=== PATIENT | male | born 1965 | race African-American/Black ===

== ENCOUNTER 2019-08-29 05:31 | Day surgery (SDC) ==
[2019-07-02 15:57] LABS: HEMATOCRIT 49.5 % (42.0-52.0); HEMOGLOBIN 15.7 g/dL (14.0-18.0); MCH 22.2 PG (27-31); MCHC 31.7 g/dL (33-37); MPV 9.8 FL (7.4-10.4); RBC 7.07 XMIL (4.7-6.1); RDW 18.7 % (11.5-14.5); WBC 4.77 X1000 (4.8-10.8)
[2019-07-02 16:08] LABS: INR 0.95; PROTIME 12.8 Seconds (11.0-16.0)
[2019-07-02 16:39] LABS: AGAP 14; BUN 17 mg/dL (8-22); CALCIUM 10.1 mg/dL (8.8-10.2); CHLORIDE 102 mmol/L (98-107); COSMO 285; CREATININE 1.4 mg/dL (0.7-1.2); ESTIMATED GFR > 60; GLUCOSE 110 mg/dL (70-104); POTASSIUM 4.8 mmol/L (3.5-5.1); SODIUM 142 mmol/L (136-145); TCO2 26 mmol/L (25-35)
--- NOTE | 2019-08-28 20:12 | HISTORY AND PHYSICAL ---
HISTORY OF PRESENT ILLNESS: A 53-year-old male with clinical stage T1c prostate adenocarcinoma. He presented with a rising PSA of 4.74 with 4K score being 31%. He underwent prostate biopsy on 06/04/2019. Unfortunately biopsy revealed Junior 3 + 3 prostate adenocarcinoma and 3 cores with left base, left mid and left base involved. He had 5 - 40 percent of cores involvement. His prostatic volume was 19 mL. There was no evidence of significant median lobe. He was counseled on intervention and wants to proceed with robotic prostatectomy with nerve sparing urethral suspension. PAST MEDICAL HISTORY: Prostate cancer, elevated PSA. PAST SURGICAL HISTORY: Wrist surgery. HOME MEDICATIONS: Travatan eye drops. ALLERGIES: No known drug allergies none. FAMILY HISTORY: Positive for coronary artery disease. SOCIAL HISTORY: Denies tobacco, alcohol or illicit drug use. PHYSICAL EXAMINATION: GENERAL: No acute distress. HEENT: Normocephalic, atraumatic. PULMONARY: Bilateral breath sounds. ABDOMEN: Soft, nontender, nondistended. : Normal external male genitalia. Meatus is patent. ASSESSMENT AND PLAN: A 53-year-old male with Radha 6 prostate adenocarcinoma who desires robotic-assisted laparoscopic radical prostatectomy with nerve sparing and laparoscopic ureteral suspension. Discussed with Mr. Barrera risks of the procedure including but not limited to bleeding, infection, injury to adjacent structures, risk of long-term urinary incontinence and risk of long-term erectile dysfunction. We also discussed the need for Zavala catheter postoperatively. He voiced understanding and wants to proceed. PLAN: Robotic-assisted laparoscopic prostatectomy with laparoscopic ureteral suspension. cc: Minesh Marrero MD [facility]
[2019-08-29] MEDS ORDERED: LR 1,000 ML ONE ×2 (05:50→06:40)
[2019-08-29] MEDS ORDERED: REGLAN ONE (05:50)
[2019-08-29] MEDS ORDERED: PEPCID ONE (05:50)
[2019-08-29] MEDS ORDERED: KEFZOL 1 GM/D5W 1 GM/50 ML IVPB ONE (05:50)
[2019-08-29] MEDS ORDERED: XYLOCAINE-MPF 2% ONE (06:11)
[2019-08-29] MEDS ORDERED: DIPRIVAN 1% ONE (06:12)
[2019-08-29] MEDS ORDERED: SODIUM CHLORIDE 0.9% 10 ML ONE (06:12)
[2019-08-29] MEDS ORDERED: QUELICIN (DOSE) ONE (06:12)
[2019-08-29] MEDS ORDERED: NORCURON ONE (06:12)
[2019-08-29] MEDS ORDERED: FENTANYL ONE ×2 (06:12→06:17)
[2019-08-29] MEDS ORDERED: VERSED ONE (06:12)
[2019-08-29] MEDS ORDERED: ZEMURON ONE (06:17)
[2019-08-29] MEDS ORDERED: MARCAINE 0.25% PF/EPI 1:200,000 ONE (06:40)
[2019-08-29] MEDS ORDERED: B & O 16A SUPP ONE (06:40)
[2019-08-29] MEDS ORDERED: ZOFRAN ONE ×2 (07:52→09:40)
[2019-08-29] MEDS ORDERED: OFIRMEV 1000 MG/ISOTONIC SOLN 1,000 MG/100 ML BOTTLE ONE (07:52)
[2019-08-29] MEDS ORDERED: DECADRON ONE (07:52)
[2019-08-29 08:02] LABS: URINE SOURCE CATH
[2019-08-29] MEDS ORDERED: TORADOL ONE (08:27)
[2019-08-29 08:28] LABS: BILIRUBIN URINE NEGATIVE (NEGATIVE); BLOOD URINE TRACE (NEGATIVE); COLOR YELLOW; GLUCOSE URINE NEGATIVE (NEGATIVE); KETONE URINE 10 mg/dL (NEGATIVE); LEUKOCYTES URINE NEGATIVE (NEGATIVE); NITRITE URINE NEGATIVE (NEGATIVE); PH URINE 5.5; PROTEIN URINE NEGATIVE (NEGATIVE); TURBIDITY URINE CLEAR (CLEAR); UROBILINOGEN URINE NORMAL (NORMAL)
[2019-08-29 08:29] LABS: UR EPITHELIAL CELLS <10 /HPF (<10); URINE BACTERIA NEGATIVE /HPF; URINE RBC <10 /HPF (<10); URINE WBC <10 /HPF (<10)
[2019-08-29] MEDS ORDERED: NEOSTIGMINE ONE (08:34)
[2019-08-29] MEDS ORDERED: ROBINUL ONE (08:34)
[2019-08-29] MEDS ORDERED: DEMEROL ONE (09:48)
[2019-08-29] MEDS ORDERED: BLISTEX MEDICATED BERRY LIP BALM ONE (09:54)
[2019-08-29] MEDS ORDERED: NS 1,000 ML ONE (09:54)
[2019-08-29] MEDS ORDERED: PHENERGAN ONE (10:04)
[2019-08-29] MEDS ORDERED: MORPHINE IV PRN (10:35)
[2019-08-29] MEDS ORDERED: PHENERGAN PR PRN (10:45)
[2019-08-29] MEDS ORDERED: ZOFRAN IV PRN (10:45)
[2019-08-29] MEDS ORDERED: BENADRYL LIQUID PO PRN (10:45)
[2019-08-29] MEDS ORDERED: NORCO-7.5 PO PRN (10:45)
[2019-08-29] MEDS ORDERED: LABETALOL IV PRN (10:45)
[2019-08-29] MEDS ORDERED: BENADRYL IV PRN (10:45)
[2019-08-29] MEDS ORDERED: DITROPAN PO PRN (10:45)
[2019-08-29] MEDS ORDERED: NORCO-10 PO PRN (10:45)
[2019-08-29] MEDS ORDERED: NORCO-5 PO PRN (10:45)
[2019-08-29] MEDS ORDERED: OXY IR PO PRN ×2 (10:45)
[2019-08-29] MEDS ORDERED: PHENERGAN PO PRN (10:45)
[2019-08-29] MEDS ORDERED: SODIUM CHLORIDE 0.9% INJ PRN (10:45)
[2019-08-29] MEDS ORDERED: DILAUDID IV PRN (10:45)
[2019-08-29] MEDS ORDERED: OFIRMEV 1000 MG/ISOTONIC SOLN 1,000 MG/100 ML BOTTLE IV PRN (14:00)
[2019-08-29] MEDS: TORADOL IV SCH ×2 (14:20→20:43)
[2019-08-29] MEDS: PHENERGAN IV PRN ×2 (14:20→22:48)
[2019-08-29] MEDS ORDERED: KEFZOL 2 GM/D5W 2 GM/50 ML IVPB IV SCH (15:00)
[2019-08-29] MEDS: KEFZOL 1 GM/D5W 1 GM/50 ML IVPB IV SCH ×2 (15:31→22:48)
[2019-08-29] MEDS: D5 1/2 NS 1,000 ML IV SCH (16:35)
[2019-08-29] MEDS ORDERED: PERIDEX MT SCH (21:00)
[2019-08-30] MEDS: COLACE PO SCH ×2 (02:17→10:05)
[2019-08-30] MEDS: D5 1/2 NS 1,000 ML IV SCH ×2 (03:04→07:03)
[2019-08-30] MEDS: TORADOL IV SCH (03:04)
[2019-08-30] MEDS: KEFZOL 1 GM/D5W 1 GM/50 ML IVPB IV SCH (07:04)
[2019-08-30 07:13] LABS: HEMATOCRIT 40.6 % (42.0-52.0); HEMOGLOBIN 13.3 g/dL (14.0-18.0); MCH 22.4 PG (27-31); MCHC 32.8 g/dL (33-37); MCV 68.5 FL (81-99); MPV 10.2 FL (7.4-10.4); RBC 5.93 XMIL (4.7-6.1); RDW 18.2 % (11.5-14.5); WBC 7.67 X1000 (4.8-10.8)
[2019-08-30 07:29] VITALS: BP 140/73
[2019-08-30 07:29] LABS: AGAP 12; BUN 11 mg/dL (8-22); CALCIUM 8.8 mg/dL (8.8-10.2); CHLORIDE 101 mmol/L (98-107); COSMO 278; CREATININE 1.3 mg/dL (0.7-1.2); ESTIMATED GFR > 60; GLUCOSE 152 mg/dL (70-104); POTASSIUM 4.1 mmol/L (3.5-5.1); SODIUM 138 mmol/L (136-145); TCO2 25 mmol/L (25-35)
[2019-08-30] MEDS ORDERED: TYLENOL PO PRN (14:00)
--- NOTE | 2019-08-30 16:01 | PROGRESS NOTE ---
DATE: 08/30/2019 SUBJECTIVE: Mr. Barrera had a good night overnight. He has had some nausea that has improved with Zofran. OBJECTIVE: T 98.9, pulse 85, and BP 140/73. Urine output was recorded in the amount of 1800 mL.General: No acute distress. Abdomen: Soft, appropriately tender. Nondistended. Incisions are clean, dry, and intact in all port sites. Zavala catheter is draining straw-colored urine. PERTINENT LABORATORY DATA: White cell count 8000, hematocrit 41, and creatinine 1.3. ASSESSMENT AND PLAN: A 53-year-old male postop day 1 status post robotic-assisted laparoscopic prostatectomy with laparoscopic urethral suspension who is doing well. He was educated on postoperative care, and Zavala catheter care. He is ready for discharge. PLAN: 1. Discharge home. 2. He will go home with Zavala catheter which will be removed in the clinic on 09/03/2019. 3. He will go home with prescriptions for [place], Zofran, Keflex, and Ditropan. cc: Minesh Marrero MD
--- NOTE | 2019-08-31 09:03 | OPERATIVE NOTE ---
PROCEDURE DATE: 08/29/2019 SURGEON: Minesh Marrero MD. [employer] SUPERVISOR: Jovi Bridges MD. Please note that Dr. Bridges participated in every critical component of the procedure. INDICATIONS: A 53-year-old male, with a rising PSA, who underwent biopsy which revealed Madison 6 prostate adenocarcinoma in 3/12 cores. He was counseled on treatment options and wants to proceed with robotic prostatectomy. He was specifically counseled on the risks of the procedure including but not limited to long-term urinary incontinence and erectile dysfunction. FINDINGS: Bilateral nerve sparing was performed. Maximal urethral preservation technique was used. Watertight vesicourethral anastomosis at 240 mL. DESCRIPTION OF PROCEDURE: After obtaining informed consent, the patient was brought to the operating room. Perioperative antibiotics and general endotracheal anesthesia were administered. He was placed in lithotomy position, and prepped and draped in a sterile fashion. An 18-Czech Zavala catheter was introduced and the bladder was drained. We began by making a small stab incision just a few centimeters above the umbilicus and introducing a Veress needle connected to saline-filled syringe. I confirmed positive drop test followed by aspiration of fluid from the syringe without evidence of GI contents or blood. I then insufflated pneumoperitoneal pressure to 15 mmHg. The trocar sites were demarcated in a standard prostatectomy fashion. Please note that prior to draping, I administered belladonna and opium suppository. Marcaine, 0.25%, with epinephrine was used at the sites for local anesthesia. Bovie electrocautery was used to incise the skin. A 12 mm camera trocar was introduced and the peritoneal cavity was inspected. He had no evidence of adhesions, and due to his slender body habitus had quite favorable anatomy. The rest of the trocars were placed under direct vision. He was placed in a steep Trendelenburg position. The robot was docked. I began by incising the peritoneum approximately 3 cm above the rectum and identified, dissected and transected the right vas deferens, followed by identification and dissection of right seminal vesicle. We then did the same thing on the left. I then dissected anterior to the vas deferens to the level of the prostate and posterior to seminal vesicles by incising Denonvilliers' fascia and developing the perirectal space. Attention was then turned to dropping the bladder. I incised lateral to each medial umbilical ligament allowing us to gain access to the space of Retzius. The endopelvic fascia was exposed as the fat overlying it was cleared off. The endopelvic fascia was incised along the contour of the prostate bilaterally. Puboprostatic ligaments were divided sharply. Superficial dorsal venous complex was controlled with bipolar electrocautery. Deep dorsal venous complex was controlled with 0 V-Loc suture in a [id number] fashion. This was followed by anterior periosteal elevation. Attention was then turned to the bladder neck, which was carefully incised with monopolar electrocautery until Zavala catheter came into the view. The Zavala was brought into the field and placed in traction with the fourth arm. The bladder neck was transected circumferentially and the plane was subsequently developed between the prostate and the bladder until vas deferens and seminal vesicles came into the view. Once that was done, they were brought and placed in anterior traction. We then turned attention to reflect the neurovascular bundles. Hem-O-Lock clips were used to reflect the bundles bilaterally and I avoided the use of electrocautery. Posteriorly a plane was developed between the rectum and the prostate. The apex of the prostate was sharply transected and I used maximal urethral preservation technique given that he did not have any positive biopsy cores at the apex. The prostate was delivered and placed into an EndoCatch bag. The field was copiously irrigated and pneumoperitoneum pressure decreased to 3 mmHg without evidence of bleeding. We then used 3-0 V-Loc suture to reapproximate perivesical and periurethral fascia. Another 3-0 V- Loc suture was used to perform a vesicourethral anastomosis. This was done in a clockwise, counter-clockwise fashion and then cross tying the sutures. I then performed laparoscopic urethral suspension by using previously placed Harsh sutures and threading them through the periosteum allowing us to elevate the urethra nicely. Once that was completed pneumoperitoneum pressure was decreased one more time to 3 mmHg. There was no active evidence of bleeding. The robot was undocked. His supraumbilical incision was extended and the specimen was delivered. Wounds were irrigated, and #1 PDS suture was used to close the fascia in a running style. A 0 Vicryl suture was used to reapproximate the fascia in a [id number] fashion at the 12 mm printer floor covering assistant trocar site. A 4-0 Monocryl was used for subcuticular closure followed by Covidien adhesive agent. Zavala catheter was kept to gravity drainage. He was extubated and taken to the PACU for further recovery. Prior to undocking the robot his anastomosis was tested by instilling 240 mL of sterile fluid in the bladder and there was no evidence of leakage. COMPLICATIONS: None. ESTIMATED BLOOD LOSS: 30 mL. SPECIMEN: Labeled as prostate gland. DRAINS: 18-Czech Zavala catheter. DISPOSITION: To PACU and subsequent the floor for observation. cc: Minesh Marrero MD
== END 2019-08-30 09:41 | disposition home or self-care (01) ==
LOC: OR 05:31 → 4N 05:31 → OR 08-30 09:41
PROVIDERS: ATTEND Urology